=== PATIENT | male | born 1945 | race Caucasian/White ===

== ENCOUNTER 2018-02-26 10:19 | Day surgery (SDC) | payer MEDICARE ==
[~2018-02-26] VITALS: Ht 165.2 cm; Wt 102.5 kg
[2018-02-26] VITALS (14 sets, daily range): BP systolic 121–143; BP diastolic 58–78; PULSE 54–64; TEMP 97.8
[2018-02-26] MEDS ORDERED: ZOLOFT 50MG50 MG PO (11:17)
[2018-02-26] MEDS ORDERED: PLAVIX 75MG TAB75 MG PO (11:18)
[2018-02-26] MEDS ORDERED: LIPITOR 80MG80 MG PO (11:18)
[2018-02-26] MEDS ORDERED: ALTACE 5MG5 MG PO (11:18)
[2018-02-26] MEDS ORDERED: GLUCOTROL10 MG PO (11:19)
[2018-02-26] MEDS ORDERED: XANAX .25M0.25 MG/TA PO (11:20)
[2018-02-26] MEDS ORDERED: TOPROL XL100 MG PO (11:20)
[2018-02-26] MEDS ORDERED: ASPI325T6 PO (11:20)
[2018-02-26] MEDS ORDERED: EPA FISH OIL1 SGL PO (11:21)
[2018-02-26 11:24] LABS: HEMATOCRIT 47.6 % (42.0-52.0); HEMOGLOBIN 16.1 g/dl (13.5-18.0); MEAN CELL VOLUME 88 fl (80.0-100.0); MEAN CORPUSCULAR HEMOGLOBIN 30 pg (27.0-31.0); MEAN CORPUSCULAR HGB CONC 34 g/dl (33.0-37.0); MEAN PLATELET VOLUME 9.2 fl (7.4-10.4); PLATELET COUNT 200 K/mm3 (130-400)
[2018-02-26 11:31] LABS: INR 1.1 (0.8-3.0); PROTHROMBIN TIME 12.2 SECONDS (9.7-12.8)
[2018-02-26 11:40] LABS: CALCIUM 9.1 mg/dL (8.4-10.2); CREATININE, serum 0.81 mg/dL (0.66-1.25); POTASSIUM 4.3 mmol/L (3.4-5.0)
== END 2018-02-26 20:10 | disposition home or self-care (01) ==
LOC: COL.CAR 10:19
PROVIDERS: Internal Medicine Cardiovascular Disease
DX: I25.10 Atherosclerotic heart disease of native coronary artery without angina pectoris (principal); R94.39 Abnormal result of other cardiovascular function study; I47.2 Ventricular tachycardia; I25.5 Ischemic cardiomyopathy; E78.5 Hyperlipidemia, unspecified; I11.0 Hypertensive heart disease with heart failure; I50.89 Other heart failure; Z88.2 Allergy status to sulfonamides; Z95.1 Presence of aortocoronary bypass graft; Z79.84 Long term (current) use of oral hypoglycemic drugs; Z79.82 Long term (current) use of aspirin; Z82.49 Family history of ischemic heart disease and other diseases of the circulatory system
CPT/HCPCS: J1644; J2250; J3010; Q9967